=== PATIENT | male | born 1975 | race Caucasian/White ===

== ENCOUNTER 2024-04-16 17:39 | Emergency (ER) | payer MEDICAID ==
[~2024-04-16] VITALS: Ht 172.7 cm; Wt 90.7 kg
[2024-04-16] MEDS ORDERED: MECLIZINE HCL 25 MG TABLET ONE (19:06)
[2024-04-16] MEDS ORDERED: CLONIDINE HCL 0.1 MG TABLET ONE (19:07)
[2024-04-16] MEDS: CLONIDINE HCL 0.1 MG TABLET PO ONE (19:15)
[2024-04-16] MEDS: MECLIZINE HCL 25 MG TABLET PO ONE (19:15)
[2024-04-16 19:23] LABS: BASOPHILS % (AUTO) 0.7 % (0.0-2.0); EOSINOPHILS # (AUTO) 0.3 K/uL (0.0-0.7); EOSINOPHILS % (AUTO) 4.7 % (0.0-7.0); HEMOGLOBIN 15.5 g/dL (12.5-16.3); LYMPHOCYTES # (AUTO) 2.3 K/uL (0.8-4.8); MEAN CORPUSCULAR HEMOGLOBIN 29.8 uug (23.8-33.4); MEAN CORPUSCULAR HGB CONC 33 g/dL (32.5-36.3); MONOCYTES # (AUTO) 0.4 K/uL (0.1-1.30); MONOCYTES % (AUTO) 6.7 % (0.0-11.0); NEUTROPHILS # (AUTO) 3.3 K/uL (1.8-8.9); NEUTROPHILS % (AUTO) 51.9 % (38.5-71.5); PLATELET COUNT (AUTO) 231 K/uL (152-348); RED BLOOD CELL COUNT(AUTO) 5.22 MIL/uL (4.06-5.63); RED CELL DISTRIBUTION WIDTH 13.2 % (12.1-16.2); WHITE BLOOD COUNT (AUTO) 6.4 K/uL (3.6-10.2)
[2024-04-16 19:31] LABS: ALBUMIN 4.1 g/dL (3.4-5.0); BILIRUBIN,TOTAL 0.5 mg/dL (0.2-1.0); CALCIUM 8.7 mg/dL (8.5-10.1); CREATININE 1.1 mg/dL (0.6-1.3); POTASSIUM 4.2 mmol/L (3.5-5.1); TOTAL PROTEIN, SERUM 7.9 g/dL (6.4-8.2)
[2024-04-16 19:42] LABS: *BILIRUBIN,URIN NEGATIVE (NEGATIVE); *BLOOD, URINE NEGATIVE (NEGATIVE); *CLARITY,URINE CLEAR (CLEAR); *COLOR,URINE YELLOW (YELLOW); *KETONES,URINE TRACE (NEGATIVE); *PROTEIN,URINE NEGATIVE (NEGATIVE); *UROBILINOGEN,URINE 0.2 E.U./dl (NORMAL); LEUKOCYTE ESTERASE ,URINE NEGATIVE (NEGATIVE); NITRITE, URINE NEGATIVE (NEGATIVE); PH,URINE 6.5 (5.0-8.0); UGLUCOSE NEGATIVE (NEGATIVE)
[2024-04-16 20:43] LABS: *BARBITURATE, URINE NEGATIVE (NEGATIVE)
[2024-04-16 20:44] LABS: *AMPHETAMINE, URINE NEGATIVE (NEGATIVE); *BENZODIAZEPINE, URINE NEGATIVE (NEGATIVE); *CANNABINOID, URINE NEGATIVE (NEGATIVE); *COCCAINE, URINE NEGATIVE (NEGATIVE); *OPIATE, URINE NEGATIVE (NEGATIVE); *PHENCYCLIDINE SCREEN,URINE NEGATIVE (NEGATIVE); FENTANYL, URINE NEGATIVE (NEGATIVE)
[2024-04-16] MEDS ORDERED: AMLO-212 PO (20:46)
[2024-04-16] MEDS ORDERED: MECL-159 PO (20:46)
[2024-04-16 20:55] VITALS: BP 117/97; TEMP 98; O2SAT 98
== END 2024-04-16 20:56 | disposition home or self-care (01) ==
LOC: ER 18:10
DX: R42 Dizziness and giddiness (principal); Z79.899 Other long term (current) drug therapy
CPT/HCPCS: 36415; 70450; 85025; A4606; A4663; J8597

== ENCOUNTER 2024-04-19 02:31 | Emergency (ER) | payer MEDICAID ==
[~2024-04-19] VITALS: Ht 175.3 cm; Wt 90.7 kg
[~2024-04-19 02:31] MED LIST: AMLO-212 PO; MECL-159 PO
[2024-04-19 03:05] LABS: BASOPHILS % (AUTO) 0.8 % (0.0-2.0); EOSINOPHILS # (AUTO) 0.3 K/uL (0.0-0.7); HEMATOCRIT 45.3 % (36.7-47.1); HEMOGLOBIN 15.5 g/dL (12.5-16.3); LYMPHOCYTES # (AUTO) 2.5 K/uL (0.8-4.8); LYMPHOCYTES % (AUTO) 43.3 % (20.5-51.5); MEAN CORPUSCULAR HEMOGLOBIN 30.6 uug (23.8-33.4); MEAN CORPUSCULAR HGB CONC 34 g/dL (32.5-36.3); MEAN CORPUSCULAR VOLUME 89.4 fL (73.0-96.2); MONOCYTES # (AUTO) 0.5 K/uL (0.1-1.30); NEUTROPHILS # (AUTO) 2.4 K/uL (1.8-8.9); NEUTROPHILS % (AUTO) 41.9 % (38.5-71.5); PLATELET COUNT (AUTO) 188 K/uL (152-348); RED BLOOD CELL COUNT(AUTO) 5.07 MIL/uL (4.06-5.63); WHITE BLOOD COUNT (AUTO) 5.8 K/uL (3.6-10.2)
[2024-04-19] MEDS ORDERED: ONDANSETRON 4 MG/2 ML VIAL ONE (03:06)
[2024-04-19] MEDS ORDERED: hydrALAZINE HCL 20 MG/1 ML VIAL ONE (03:06)
[2024-04-19] MEDS ORDERED: CYCLOBENZAPRINE HCL 10 MG TABLET ONE (03:06)
[2024-04-19] MEDS ORDERED: HYDROMORPHONE 1 MG/1 ML DISP.SYRIN ONE (03:07)
[2024-04-19] MEDS ORDERED: NITROGLYCERIN OINT 1 GM PACKET TP ONE (03:08)
[2024-04-19 03:16] LABS: DIFFERENTIAL COMMENT 1
[2024-04-19 03:22] LABS: CALCIUM 8.8 mg/dL (8.5-10.1); CARBON DIOXIDE 29 mmol/L (21-32); CHLORIDE 105 mmol/L (98-107); CREATININE 1.2 mg/dL (0.6-1.3); GLUCOSE 101 mg/dL (74-106); POTASSIUM 4.2 mmol/L (3.5-5.1); SODIUM SERUM 142 mmol/L (136-145); UREA NITROGEN, BLOOD 18 mg/dL (7-18)
[2024-04-19] MEDS: hydrALAZINE HCL 20 MG/1 ML VIAL IV ONE (03:23)
[2024-04-19] MEDS: IV NORMAL SALINE 1000 ML BAG IV ONE (03:24)
[2024-04-19] MEDS: HYDROMORPHONE 1 MG/1 ML DISP.SYRIN IV ONE (03:24)
[2024-04-19] MEDS: ONDANSETRON 4 MG/2 ML VIAL IV ONE (03:24)
[2024-04-19] MEDS: CYCLOBENZAPRINE HCL 10 MG TABLET PO ONE (03:25)
[2024-04-19] MEDS: NITROGLYCERIN OINT 1 GM PACKET TP ONE (03:25)
[2024-04-19] MEDS ORDERED: SWABABLE VALVE TRANSFER SET EA MC ONE ×2 (03:26)
[2024-04-19] MEDS ORDERED: IV NORMAL SALINE 250 ML IV ONE (03:26)
[2024-04-19] MEDS ORDERED: IOHEXOL 350 100 ML INFUS..BTL ONE (03:26)
[2024-04-19 03:29] LABS: *BILIRUBIN,URIN NEGATIVE (NEGATIVE); *BLOOD, URINE NEGATIVE (NEGATIVE); *CLARITY,URINE CLEAR (CLEAR); *COLOR,URINE YELLOW (YELLOW); *KETONES,URINE NEGATIVE (NEGATIVE); *PROTEIN,URINE NEGATIVE (NEGATIVE); *UROBILINOGEN,URINE 0.2 E.U./dl (NORMAL); LEUKOCYTE ESTERASE ,URINE NEGATIVE (NEGATIVE); NITRITE, URINE NEGATIVE (NEGATIVE); UGLUCOSE NEGATIVE (NEGATIVE)
[2024-04-19 03:35] LABS: ALANINE AMINOTRANSFERASE 56 U/L (16-63); ALBUMIN 3.9 g/dL (3.4-5.0); ALKALINE PHOSPHATASE 69 U/L (50-136); ASPARTATE AMINOTRANSFERASE 28 U/L (15-37); BILIRUBIN,DIRECT 0.1 mg/dL (0.0-0.2); BILIRUBIN,TOTAL 0.5 mg/dL (0.2-1.0); NT-PRO BNP 46 pg/mL (0-125); TOTAL PROTEIN, SERUM 7.4 g/dL (6.4-8.2)
[2024-04-19] MEDS ORDERED: OXYC-133 PO (03:57)
[2024-04-19] MEDS ORDERED: CYCL10TA9 PO (03:57)
[2024-04-19 07:09] VITALS: BP 104/77; TEMP 208.4; O2SAT 99
== END 2024-04-19 07:12 | disposition home or self-care (01) ==
LOC: ER 02:34
DX: M62.830 Muscle spasm of back (principal); M54.50 Low back pain, unspecified; Z79.899 Other long term (current) drug therapy
CPT/HCPCS: 99285; 96374; 71275; 96375; 96361; 80076; 80048; 81003; 83880; 85025; 85730; 84484 ×2; 36415; 93005; J0360; J2405; Q9967; J1170; J7040; 71045; A4606; A4663

== ENCOUNTER 2025-09-03 03:58 | Emergency (ER) | payer MEDICAID ==
[~2025-09-03] VITALS: Ht 182.9 cm; Wt 93.0 kg
[~2025-09-03 03:58] MED LIST changes: +CYCL10TA9 PO; +OXYC-133 PO
[2025-09-03] MEDS ORDERED: DICYCLOMINE HCL LIQ 10 MG/5 ML UDC ONE (04:34)
[2025-09-03] MEDS ORDERED: PANTOPRAZOLE SODIUM 40 MG TABLET.DR PO ONE (04:34)
[2025-09-03] MEDS ORDERED: ASPIRIN 81 MG TAB.CHEW ONE (04:34)
[2025-09-03] MEDS ORDERED: LIDOCAINE VISCUS 2% 15 ML UDC ONE (04:34)
[2025-09-03] MEDS ORDERED: MAG HYDROX/AL HYDROX/SIMETH 30 ML LIQUID UDC ONE (04:35)
[2025-09-03] MEDS ORDERED: NITROGLYCERIN OINT 1 GM PACKET TP ONE (04:35)
[2025-09-03] MEDS ORDERED: PANT40TA2 PO (04:43)
[2025-09-03] MEDS ORDERED: ENAL20TA70 PO (04:43)
[2025-09-03 04:49] LABS: PLATELET COUNT (AUTO) 176 K/uL (152-348); RED BLOOD CELL COUNT(AUTO) 5.70 MIL/uL (4.06-5.63); RED CELL DISTRIBUTION WIDTH 13.5 % (12.1-16.2); WHITE BLOOD COUNT (AUTO) 6.8 K/uL (3.6-10.2)
[2025-09-03] MEDS: PANTOPRAZOLE SODIUM 40 MG TABLET.DR PO ONE (04:52)
[2025-09-03] MEDS: NITROGLYCERIN OINT 1 GM PACKET TP ONE (04:52)
[2025-09-03] MEDS: MAG HYDROX/AL HYDROX/SIMETH 30 ML LIQUID UDC PO ONE (04:52)
[2025-09-03] MEDS: ASPIRIN 81 MG TAB.CHEW PO ONE (04:52)
[2025-09-03] MEDS: LIDOCAINE VISCUS 2% 15 ML UDC MM ONE (04:52)
[2025-09-03] MEDS: DICYCLOMINE HCL LIQ 10 MG/5 ML UDC PO ONE (04:52)
[2025-09-03 04:56] LABS: CREATININE 1.2 mg/dL (0.6-1.3); SODIUM SERUM 139 mmol/L (136-145); UREA NITROGEN, BLOOD 14 mg/dL (7-18)
[2025-09-03 05:01] LABS: ASPARTATE AMINOTRANSFERASE 18 U/L (15-37); TOTAL PROTEIN, SERUM 6.9 g/dL (6.4-8.2)
[2025-09-03] MEDS ORDERED: ONDANSETRON 4 MG/2 ML VIAL ONE (05:17)
[2025-09-03] MEDS ORDERED: HYDROMORPHONE 1 MG/1 ML DISP.SYRIN ONE (05:17)
[2025-09-03] MEDS: HYDROMORPHONE 1 MG/1 ML DISP.SYRIN IV ONE (05:25)
[2025-09-03] MEDS: ONDANSETRON 4 MG/2 ML VIAL IV ONE (05:25)
[2025-09-03 06:00] VITALS: BP 122/83
[2025-09-03 08:37] VITALS: BP 122/83; O2SAT 94
== END 2025-09-03 08:40 | disposition home or self-care (01) ==
LOC: ER 04:08
DX: M54.6 Pain in thoracic spine (principal); R07.89 Other chest pain; I10 Essential (primary) hypertension; R06.02 Shortness of breath; Z79.899 Other long term (current) drug therapy
CPT/HCPCS: 99285; 96374; 96375; 71045; 80076; 80048; 83880; 85025; 84484 ×2; 36415; 93005; J0360; J2405; J1171; A4606; A4663